=== PATIENT | female | born 1950 | race Caucasian/White ===

== ENCOUNTER 2018-03-06 00:18 | Inpatient (IN) | payer MEDICARE ==
[2018-03-06 01:13] LABS: #Basophils 0.1 thou/uL (0.0-0.2); #Eosinphils 0.1 thou/uL (0.0-0.7); #Monocytes 0.8 thou/uL (0.11-0.59); #Neutrophils 12.5 thou/uL (1.40-6.50); %Basophils 0.4 % (0.0-1.0); %Eosinophils 0.6 % (0.0-10.0); %Lymphocytes 12.9 % (21.0-51.0); %Monocytes 5.2 % (0.0-10.0); %Neutrophils 80.9 % (42.0-75.0); Hemoglobin 13.1 g/dL (12.0-16.0); Mean Corpuscular HGB CONC 34.3 g/dL (32.0-36.0); Mean Corpuscular Hemoglobin 30.2 pg (27.0-31.0); Mean Corpuscular Volume 87.9 fl (81.0-99.0); Platelet Count 282 thou/uL (130-400); RBC Distribution Width 12.4 % (11.5-14.5); Red Blood Cell (RBC) Count 4.33 mill/uL (4.20-5.40); White Blood Cell (WBC) Count 15.4 thou/uL (4.8-10.8)
[2018-03-06 01:27] LABS: ALT (SGPT) 16 U/L (8-55); AST (SGOT) 13 U/L (5-34); Albumin 4.3 g/dL (3.4-4.8); Alkaline Phosphatase 43 U/L (40-150); Anion Gap 15 mmol/L (10-20); BUN (Urea Nitrogen) 13 mg/dL (9.8-20.1); Bilirubin, Total 0.6 mg/dL (0.2-1.2); Calc. Creatinine Clearance 0 mL/min (70-130); Calcium 9.4 mg/dL (7.8-10.44); Carbon Dioxide 25 mmol/L (23-31); Chloride 105 mmol/L (98-107); Estimated GFR-MDRD 68; Globulin 2.4 g/dL (2.4-3.5); Glucose 184 mg/dL (80-115); Lipase 19 U/L (8-78); Potassium 3.7 mmol/L (3.5-5.1); Protein, Total 6.7 g/dL (6.0-8.3); Sodium 141 mmol/L (136-145)
[2018-03-06 02:35] LABS: Bilirubin Negative (Negative); Blood, Urine Negative (Negative); Clarity CLEAR (Clear); Glucose, Urine (Dipstick) Negative (Negative); Leukocyte Small (Negative); Nitrite Negative (Negative); Protein, Urine (Dipstick) Negative (Neg-Trace); Specific Gravity, Urine 1.018 (1.002-1.036); Urobilinogen 0.2 mg/dL (0.2-1.0)
[2018-03-06 02:38] LABS: Bacteria/HPF None Seen HPF (None Seen); Hyaline Casts/LPF 0-3 HYALINE CAST LPF (0-3 Hyaline); Pathc Cast-AUWi Flag 0.29 (0-2.49)
[2018-03-06 02:48] LABS: Renal Epithelial None Seen HPF (0-3); Transitional Epithelial NONE SEEN HPF (0-3)
[2018-03-06] MEDS ORDERED: Ondansetron HCl/PF 4 MG/2 ML Vial IVP PRN ×3 (04:00→19:49)
[2018-03-06] MEDS ORDERED: Ondansetron ODT 4 MG TAB SL PRN (04:00)
[2018-03-06] MEDS ORDERED: metroNIDAZOLE 500 MG/100 ML BAG ONE (04:20)
[2018-03-06] MEDS ORDERED: Morphine 4 MG/ML VIAL ONE ×2 (04:20→07:42)
[2018-03-06] MEDS ORDERED: Piperacillin/Tazobactam 4.5 GM VIAL ONE (05:01)
[2018-03-06] MEDS ORDERED: Morphine 4 MG/ML VIAL SLOW IVP PRN ×3 (08:40→19:49)
--- NOTE | 2018-03-06 09:28 | CT ---
PRELIMINARY REPORT/[facility]/EMERGENTY AFTER-HOURS PROCEDURE Addendum created by Randal Moran MD on 03/06/2018 4:30 AM Central Time ([place] & [place]) per operations te am, Dr Rocha is aware of report and has no questions. Initial Report created on 03/06/2018 4:23 AM C entral Time ([place] & [place]) CT Abdomen and Pelvis Without Intravenous Contrast EXAM DATE/TIME: Exam ordered 03/06/2018 2:56 AM CLINICAL HISTORY: 68 years old, female; Pain; Abdominal pain; Flank; Lower; Patient HX: Abdominal pain for 4 hours. Low er abdomen and gu pain. TECHNIQUE: Axial computed tomography images of the abdomen and pelvis without intravenous contrast. Coronal refo rmatted images were created and reviewed. COMPARISON: No relevant prior studies available. FINDINGS: Lung bases: There is subpleural atelectasis of the dependent portions of the lungs. Mediastinum: A small hiatal hernia is present. ABDOMEN: Liver: The liver is within normal limits for this noncontrast study. Gallbladder and bile ducts: There has been a cholecystectomy. No ductal dilation. Pancreas: The pancreas appears normal. No ductal dilation. Spleen: The spleen is normal. Adrenals: The adrenal glands are normal. Kidneys and ureters: Normal. No obstructing stones. No hydronephrosis. Stomach and bowel: There is inflammatory stranding surrounding the sigmoid colon involving several di verticula consistent with acute sigmoid diverticulitis. Numerous foci of free are seen within the abd omen consistent with perforation. No obstruction. PELVIS: Appendix: There are surgical clips in the RIGHT lower quadrant probably representing prior appendecto my. Bladder: Normal. No stones. Reproductive: The uterus is normal. ABDOMEN and PELVIS: Intraperitoneal space: Free air as above. No abscess. Bones/joints: No acute fracture. No dislocation. Soft tissues: Normal. Vasculature: Normal. No abdominal aortic aneurysm. Lymph nodes: Normal. No enlarged lymph nodes. Tubes, lines and devices: There is a gastric lap band in satisfactory position. IMPRESSION: Perforated acute sigmoid diverticulitis. No abscess. Thank you for allowing us to participate in the care of your patient. Dictated and Authenticated by: Randal Moran MD 03/06/2018 4:23 AM Central Time ([place] & [place]) FINAL REPORT EMERGENCY AFTER HOURS NONCONTRAST CT ABDOMEN AND PELVIS: Date: 03/06/18 HISTORY: Abdominal pain for 4 hours. Patient complains of lower abdominal pain and genitourinary pain. IMPRESSION: 1. Inflammatory changes within the right pelvis with thickening of a portion of the sigmoid colon wi th innumerable colonic diverticula seen. Findings are likely related to diverticulitis. Multiple foci of free intraperitoneal gas are seen throughout the abdomen as well. As noted on the preliminary rep ort, findings are likely related to perforated sigmoid diverticulitis. 2. No fluid collection is seen to suggest an abscess. 3. Postsurgical changes related to right hemicolectomy. 4. Gastric band in place. A portion of the stomach is above the level of the gastric band and there does appear to be mild thickening of the esophagus just proximal to the GE junction. 5. Post cholecystectomy changes. 6. Vascular calcifications. Findings are in agreement with the preliminary report by Johanna. POS: [facility]
[2018-03-06] MEDS ORDERED: Glycopyrrolate 0.2 MG/ML 5 ML SYRINGE ONE (11:17)
[2018-03-06] MEDS ORDERED: Dexamethasone 20 MG/5 ML VIAL ONE (11:17)
[2018-03-06] MEDS ORDERED: Metoclopramide HCl 10 MG/2 ML VIAL ONE (11:17)
[2018-03-06] MEDS ORDERED: Esmolol 100 MG/10 ML VIAL ONE (11:17)
[2018-03-06] MEDS ORDERED: Lidocaine 1% PF 5 ML VIAL ONE (11:17)
[2018-03-06] MEDS ORDERED: Succinylcholine Chloride 20 MG/ML 10 ml SYRINGE FS ONE (11:17)
[2018-03-06] MEDS ORDERED: PROPOFOL 200 MG/20 ML VIAL ONE (11:17)
[2018-03-06] MEDS ORDERED: PHENYLEPHRINE-NS 100 MCG/ML 10 ML SYRINGE ONE (11:17)
[2018-03-06] MEDS ORDERED: Piperacillin/Tazobactam 3.375 GM in Sodium Chloride 0.9% 100 ML IVPB SCH ×2 (12:30→19:49)
--- NOTE | 2018-03-06 15:02 | HP ---
DATE OF ADMISSION: 03/06/2018 CHIEF COMPLAINT: Diffuse abdominal pain. HISTORY OF PRESENT ILLNESS: The patient is a 68-year-old white female. She was seen, evaluated, and treated for an episode of diverticulitis 6 weeks ago while in [place]. She was started on a c ourse of Flagyl and Cipro and her symptoms seem to resolve. She tells me her last colonoscopy was about 5 years ago and was unremarkable except for diverticular disease. About 9:00 last night, she developed onset of abdominal pain. It progressed and became worse. She h ad nausea, but no vomiting. She presented to the emergency room and a CT scan was obtained. This re vealed findings consistent with perforated diverticulitis. There was free air seen within the abdome n. This, however, was a minimal amount of free air. She was started on intravenous antibiotics and admitted to my service. PAST MEDICAL HISTORY: Depression, hypothyroidism, gastroesophageal reflux disease, hypercholesterole nhan, diverticular disease. PAST SURGICAL HISTORY: 1. Sterotactic breast biopsy for benign disease. 2. Tonsillectomy. 3. Cholecystectomy. 4. Laparoscopic band placement approximately 1999. 5. Resection of approximately 18 inches of colon in about 2007 for a benign polyp. 6. Blepharoplasty. 7. Nasal surgery. CURRENT MEDICATIONS: Include Zoloft, Levoxyl, Reglan p.r.n., atorvastatin, sucralfate, aspirin. ALLERGIES: To TETRACYCLINE, so she is not taking TETRACYCLINE. PRIMARY CARE PHYSICIAN: Dr. Mansoor Valderrama. PERSONAL AND SOCIAL HISTORY: She is and is present at bedside. She has 3 children, one of whom is present at bedside. She denies tobacco. She uses alcohol rarely. She is retired. REVIEW OF SYSTEMS: Ten system review is otherwise negative. She tells me she rarely has any issues with constipation. FAMILY HISTORY: Noncontributory. PHYSICAL EXAMINATION: VITAL SIGNS: Her temperature is 98.5, pulse 81, blood pressure 112/72. GENERAL: She is a well-developed, well-nourished, pleasant white female resting in bed in no acute d istress. She is relatively comfortable while lying down. She has significant discomfort when she tr ies to move at all. She is alert and oriented x3. HEENT: Unremarkable. NECK: Supple, without mass or tenderness. LUNGS: Clear to auscultation. CARDIAC: Regular rate and rhythm without murmur. ABDOMEN: Diffusely tender in all 4 quadrants. Bowel sounds are present, but hypoactive. EXTREMITIES: Unremarkable. ASSESSMENT AND PLAN: Patient with perforated diverticulitis. She has more diffuse pain that I expec vincent following in light of what was on her CT scan. I therefore recommended laparoscopic washout to a void issues with peritonitis and infection. I suspect that this should be able to be managed with nv nimal laparoscopic surgery and drain placement. I would thereafter hope to allow this to resolve and then eventually proceed with an elective sigmoid colectomy to prevent recurrence of this again in li ght of her current perforation. I have discussed all this in detail with the patient and her family. They understand and agree to proceed. Surgery will be performed today.
[2018-03-06] MEDS ORDERED: Fentanyl 250 MCG/5 ML VIAL ONE (16:09)
[2018-03-06] MEDS ORDERED: Bupivacaine/Epinephrine 0.25% 30 ML VIAL ONE (16:11)
[2018-03-06] MEDS ORDERED: Promethazine HCl 25 MG/ML VIAL IM PRN ×2 (18:07→19:49)
[2018-03-06] MEDS ORDERED: Promethazine HCl 25 MG/ML VIAL SLOW IVP PRN (18:07)
[2018-03-06] MEDS ORDERED: Fentanyl 100 MCG/2 ML VIAL ONE (18:31)
[2018-03-06] MEDS: Piperacillin/Tazobactam 3.375 GM in Sodium Chloride 0.9% 100 ML IVPB SCH ×2 (18:42→23:20)
[2018-03-06] MEDS ORDERED: hydrALAZINE 20 MG/ML VIAL SLOW IVP PRN (19:49)
[2018-03-06] MEDS: Ketorolac Tromethamine 30 MG/ML VIAL IVP SCH (21:41)
[2018-03-06] MEDS: Acetaminophen 1,000 MG in Premix Bag 1 BAG IVPB SCH (21:41)
[2018-03-06] MEDS: Famotidine/PF 20 mg/2ml Vial SLOW IVP SCH (21:42)
[2018-03-06] MEDS: D5 1/2 NS w/20 mEq KCL 1,000 ML IV SCH (23:21)
[2018-03-06] MEDS: Famotidine 20 MG TAB PO SCH (23:21)
[2018-03-07] MEDS: Ketorolac Tromethamine 30 MG/ML VIAL IVP SCH ×4 (02:20→20:57)
[2018-03-07] MEDS: Acetaminophen 1,000 MG in Premix Bag 1 BAG IVPB SCH ×3 (02:20→14:12)
[2018-03-07 05:31] LABS: #Lymphocytes 1.1 thou/uL (1.20-3.40); #Monocytes 0.6 thou/uL (0.11-0.59); #Neutrophils 11.4 thou/uL (1.40-6.50); %Basophils 0.1 % (0.0-1.0); %Eosinophils 0.2 % (0.0-10.0); %Lymphocytes 8.1 % (21.0-51.0); %Monocytes 4.2 % (0.0-10.0); %Neutrophils 87.3 % (42.0-75.0); Hemoglobin 10.8 g/dL (12.0-16.0); Mean Corpuscular HGB CONC 32.9 g/dL (32.0-36.0); Mean Corpuscular Hemoglobin 30.3 pg (27.0-31.0); Mean Corpuscular Volume 92.2 fl (81.0-99.0); Mean Platelet Volume 6.5 fL (7.4-10.4); Platelet Count 212 thou/uL (130-400); RBC Distribution Width 12.4 % (11.5-14.5); Red Blood Cell (RBC) Count 3.57 mill/uL (4.20-5.40)
[2018-03-07] MEDS: Piperacillin/Tazobactam 3.375 GM in Sodium Chloride 0.9% 100 ML IVPB SCH ×3 (05:32→17:44)
[2018-03-07 05:53] LABS: Anion Gap 11 mmol/L (10-20); BUN (Urea Nitrogen) 9 mg/dL (9.8-20.1); Calc. Creatinine Clearance 94 mL/min (70-130); Calcium 8.2 mg/dL (7.8-10.44); Carbon Dioxide 20 mmol/L (23-31); Chloride 109 mmol/L (98-107); Estimated GFR-MDRD 87; Glucose 157 mg/dL (80-115); Sodium 136 mmol/L (136-145)
[2018-03-07] MEDS: D5 1/2 NS w/20 mEq KCL 1,000 ML IV SCH ×2 (07:52→11:42)
[2018-03-07] MEDS: Famotidine/PF 20 mg/2ml Vial SLOW IVP SCH ×2 (08:29→21:41)
[2018-03-07] MEDS: Famotidine 20 MG TAB PO SCH ×2 (08:29→20:57)
[2018-03-07] MEDS: Enoxaparin Sodium 40 MG/0.4 ML SYRINGE SC SCH (08:29)
--- NOTE | 2018-03-07 10:44 | OP ---
DATE OF PROCEDURE: 03/06/2018 PREOPERATIVE DIAGNOSIS: Perforated diverticulitis. POSTOPERATIVE DIAGNOSIS: Perforated diverticulitis. OPERATIONS PERFORMED: Laparoscopic abscess drainage, extensive laparoscopic washout and placement of intra-abdominal drains. SURGEON: Mansoor Valderrama M.D. ANESTHESIA: General endotracheal. INDICATIONS: The patient is a 68-year-old white female. She presented to the hospital with abdomina l pain and CT scan revealed perforated diverticulitis with free air away from the left lower quadrant . She has diffuse abdominal pain. I therefore recommended a laparoscopic washout. DESCRIPTION OF OPERATION: Informed consent was obtained. The patient was taken to the operating kai m where general endotracheal anesthesia was obtained with the patient in supine position. Abdomen wa s prepped with ChloraPrep and draped in sterile fashion. Local anesthetic was infiltrated and 5 mm r ight lateral abdominal incision was created through which a Veress needle was passed into the periton eal cavity and pneumoperitoneum established using carbon dioxide up to a pressure of 15 mmHg. A 5 mm trocar was passed through this same incision. Laparoscopic camera was passed this port. Under dire ct vision, an additional 5 mm right lower quadrant port was placed. I then placed a 5 mm supraumbili arya port and a 5 mm left mid abdominal port. There were noted to be adhesions in the right upper tammy drant from the prior colon resection. These were all omental. This was taken down using sharp disse ction with electrocautery. Attention was turned to the sigmoid colon. This was severely inflamed an d adherent to the anterior abdominal wall. It was easily bluntly mobilized away from the anterior ab dominal wall. The purulence and induration was in the center of the sigmoid colon. There was purule nce within the pelvis, right lower quadrant, left lower quadrant. There was no feculent material. I examined the sigmoid colon, could not identify a punctate opening with any inflammatory area. I asp irated all purulent material and submitted some of this for culture. I then extensively irrigated al l areas of the abdomen including both upper quadrants. A 6 liters of irrigant doing this and aspirat ed all irrigant. I then placed two separate #19 round fluted drains. One of these exited the right lower quadrant and this was positioned superior to the inflamed segment of sigmoid colon, though one on the left abdomen was placed inferior to the colon and down to the pelvis. The drains were secured to skin exit site with 3-0 nylon suture. The other laparoscopic port sites were closed with 4-0 Mon ocryl subcuticular suture and Dermabond. All ports and instruments were removed under direct vision. Pneumoperitoneum was carefully evacuated. The patient tolerated the procedure well and was taken t o recovery room in stable condition.
[2018-03-07] MEDS ORDERED: HYDROcodone/Acetaminophen 7.5/325 mg Tablet PO PRN ×2 (17:59)
[2018-03-07] MEDS: Atorvastatin Calcium 10 MG TAB PO SCH (20:57)
[2018-03-07] MEDS ORDERED: Acetaminophen 325 MG TAB PO PRN (21:28)
[2018-03-08] MEDS ORDERED: Acetaminophen 500 MG TAB PO PRN (00:08)
[2018-03-08] MEDS: Piperacillin/Tazobactam 3.375 GM in Sodium Chloride 0.9% 100 ML IVPB SCH ×5 (01:06→23:58)
[2018-03-08] MEDS: D5 1/2 NS w/20 mEq KCL 1,000 ML IV SCH ×3 (01:22→14:40)
[2018-03-08] MEDS: Ketorolac Tromethamine 30 MG/ML VIAL IVP SCH ×4 (02:13→20:49)
[2018-03-08] MEDS: Levothyroxine Sodium 125 MCG TAB PO SCH (06:19)
[2018-03-08 08:56] LABS: #Eosinphils 0.3 thou/uL (0.0-0.7); #Lymphocytes 1.6 thou/uL (1.20-3.40); #Monocytes 0.5 thou/uL (0.11-0.59); #Neutrophils 7.1 thou/uL (1.40-6.50); %Basophils 0.4 % (0.0-1.0); %Eosinophils 3.2 % (0.0-10.0); %Lymphocytes 16.2 % (21.0-51.0); %Monocytes 5.5 % (0.0-10.0); %Neutrophils 74.6 % (42.0-75.0); Hemoglobin 10.8 g/dL (12.0-16.0); Mean Corpuscular HGB CONC 33.1 g/dL (32.0-36.0); Mean Corpuscular Hemoglobin 29.7 pg (27.0-31.0); Mean Corpuscular Volume 89.7 fl (81.0-99.0); Mean Platelet Volume 6.3 fL (7.4-10.4); Platelet Count 237 thou/uL (130-400); RBC Distribution Width 12.4 % (11.5-14.5); Red Blood Cell (RBC) Count 3.65 mill/uL (4.20-5.40); White Blood Cell (WBC) Count 9.5 thou/uL (4.8-10.8)
[2018-03-08] MEDS: Enoxaparin Sodium 40 MG/0.4 ML SYRINGE SC SCH (08:57)
[2018-03-08] MEDS: Famotidine 20 MG TAB PO SCH ×2 (08:57→20:50)
[2018-03-08] MEDS: Famotidine/PF 20 mg/2ml Vial SLOW IVP SCH (08:57)
[2018-03-08 09:19] LABS: Anion Gap 8 mmol/L (10-20); BUN (Urea Nitrogen) 6 mg/dL (9.8-20.1); Calc. Creatinine Clearance 89 mL/min (70-130); Calcium 8.2 mg/dL (7.8-10.44); Carbon Dioxide 24 mmol/L (23-31); Chloride 111 mmol/L (98-107); Estimated GFR-MDRD 81; Glucose 115 mg/dL (80-115); Potassium 3.8 mmol/L (3.5-5.1); Sodium 139 mmol/L (136-145)
--- NOTE | 2018-03-08 14:26 | PRG ---
DATE OF SERVICE: 03/08/2018 SUBJECTIVE: The patient is postoperative day #2 from exploratory laparoscopy with drainage of pelvic abscess and abdominal washout. She had significant discomfort yesterday, but feels much better toda y. She is on a clear liquid diet which she has tolerated uneventfully. She has had a couple of tanner l movements. She notes she is passing flatus. PHYSICAL EXAMINATION: VITAL SIGNS: She is afebrile, pulse 73, blood pressure 159/83. LUNGS: Clear to auscultation. ABDOMEN: Soft with minimal tenderness and positive bowel sounds. Drains were inspected and found to have clear serosanguineous fluid. LABORATORY STUDIES: White blood cell count was down today to 9.5 with a hemoglobin stable at 10.8. Chemistry panel reveals minimal electrolyte abnormalities. ASSESSMENT: The patient is doing very well two days after laparoscopic drainage of perforated divert iculitis. She is making excellent progress. I will continue her Zosyn today. I will stop her IV fl uids and advance her to full liquid diet. Assuming she is doing well tomorrow, I plan on removing emma th drains and discharging her home with prescription for Cipro and Flagyl and to continue a liquid di et for a total of a week out from surgery.
[2018-03-08] MEDS: Atorvastatin Calcium 10 MG TAB PO SCH (20:50)
[2018-03-09] MEDS: Ketorolac Tromethamine 30 MG/ML VIAL IVP SCH ×2 (01:06→08:56)
[2018-03-09] MEDS: Piperacillin/Tazobactam 3.375 GM in Sodium Chloride 0.9% 100 ML IVPB SCH (06:58)
[2018-03-09] MEDS: Levothyroxine Sodium 125 MCG TAB PO SCH (06:58)
[2018-03-09 07:43] VITALS: BP 157/86; TEMP 98.3
[2018-03-09] MEDS: Famotidine 20 MG TAB PO SCH (08:56)
[2018-03-09] MEDS: Enoxaparin Sodium 40 MG/0.4 ML SYRINGE SC SCH (11:28)
== END 2018-03-09 11:05 | disposition home or self-care (01) | DRG 392 ==
LOC: ERS 00:18 → SURG B 06:31
PROVIDERS: ADMIT Specialist; ATTEND Specialist
PROC: 0W9J3ZZ Drainage of Pelvic Cavity, Percutaneous Approach (ICD-10-PCS; principal; 2018-03-06)
PROC: 0W9G3ZZ Drainage of Peritoneal Cavity, Percutaneous Approach (ICD-10-PCS; 2018-03-06)
DX: K57.20 Diverticulitis of large intestine with perforation and abscess without bleeding (principal); E03.9 Hypothyroidism, unspecified; K21.9 Gastro-esophageal reflux disease without esophagitis; E78.00 Pure hypercholesterolemia, unspecified
CPT/HCPCS: 36415; 74176; 80048; 80053; 81003; 81015; 83690; 85025; 87070; 87076; 87077; 87186; 87205; 96361; 96365; 96367; 96375; 96376; J0131; J1100; J1650; J1885; J2001; J2270; J2543; J2704; J2765; J3010; J7050

== ENCOUNTER 2018-06-23 14:35 | Emergency (ER) | payer MEDICARE | END 2018-06-23 15:48 | disposition home or self-care (01) | LOC: ERS 14:35 | DX: I80.02 Phlebitis and thrombophlebitis of superficial vessels of left lower extremity (principal); E78.5 Hyperlipidemia, unspecified; G62.9 Polyneuropathy, unspecified | CPT/HCPCS: 99284 ==

== ENCOUNTER 2018-10-06 12:03 | Outpatient (CLI) | payer MEDICARE ==
--- NOTE | 2018-10-06 12:55 | RAD ---
LUMBAR SPINE TWO VIEWS: History: Low back pain. FINDINGS/IMPRESSION: No compression fracture is seen. There are degenerative changes in the lower lumbar spine with grade I anterolisthesis of L4 over L5. POS: [facility]
== END 2018-10-06 12:04 | disposition home or self-care (01) ==
LOC: BICRAD 12:03
PROVIDERS: ATTEND Specialist
DX: M54.5 Low back pain (principal); M47.816 Spondylosis without myelopathy or radiculopathy, lumbar region; M43.16 Spondylolisthesis, lumbar region
CPT/HCPCS: 72100

== ENCOUNTER 2018-11-01 08:55 | Outpatient (CLI) | payer MEDICARE ==
--- NOTE | 2018-11-01 12:16 | MRI ---
MRI LUMBAR SPINE WITHOUT CONTRAST: Date: 11/01/18 COMPARISON: None. HISTORY: Low back pain that radiates down left leg for 6 months. TECHNIQUE: Multiplanar, multisequence MR images were obtained of the lumbar spine without contrast. FINDINGS: Generalized disc desiccation is seen. Vertebral bodies demonstrate normal height without evidence of fracture. There is Grade I anterolisthesis of L4 on L5. The conus medullaris terminates normally at T 12. The prevertebral and paraspinal soft tissues are unremarkable. T12-L1: Unremarkable. L1-2: Unremarkable. L2-3: A small generalized concentric disc bulge is seen. Mild bilateral posterior facet arthrosis. N o central canal stenosis. Mild bilateral neural foraminal stenosis. L3-4: A small generalized concentric disc bulge is seen. Mild bilateral posterior facet arthrosis. M ild central canal stenosis. Mild bilateral neural foraminal stenosis. L4-5: A large disc osteophyte complex is associated with superimposed central protrusion. Moderate b ilateral posterior facet arthrosis. Severe central canal stenosis. Moderate bilateral neural foramina l stenosis. L5-S1: A minimal generalized concentric disc bulge is seen. Mild bilateral posterior facet arthrosis . No central canal stenosis. Mild bilateral neural foraminal stenosis. IMPRESSION: Degenerative changes of the lumbar spine as above, greatest at L4-5. POS: [facility]
== END 2018-11-01 08:56 | disposition home or self-care (01) ==
LOC: BICMRI 08:55
PROVIDERS: ATTEND Specialist
DX: M54.5 Low back pain (principal); M47.816 Spondylosis without myelopathy or radiculopathy, lumbar region
CPT/HCPCS: 72148

== ENCOUNTER 2019-01-12 15:02 | Outpatient (CLI) | payer MEDICARE ==
--- NOTE | 2019-01-12 16:59 | RAD ---
3 VIEWS LUMBOSACRAL SPINE: Date: 01/12/19 COMPARISON: 10/06/18. HISTORY: Low back pain. FINDINGS: Three views of the lumbosacral spine were performed in neutral, flexion, and extension. There is Grad e I anterolisthesis of L4 on L5. This alignment is unchanged with flexion and extension. Posterior fa cet arthrosis is seen in the lower lumbosacral spine. IMPRESSION: Spondylolisthesis of L4 on L5 with unchanged alignment with bending. POS: [facility]
== END 2019-01-12 15:03 | disposition home or self-care (01) ==
LOC: TBSIIMAG 15:02
PROVIDERS: ATTEND Neurological Surgery
DX: M48.062 Spinal stenosis, lumbar region with neurogenic claudication (principal); M51.26 Other intervertebral disc displacement, lumbar region; M43.16 Spondylolisthesis, lumbar region
CPT/HCPCS: 72100

== ENCOUNTER 2019-02-08 05:49 | Inpatient (IN) | payer MEDICARE ==
[2019-02-07 16:00] VITALS: BMI 28.6
[2019-02-08 06:24] LABS: #Basophils 0.1 thou/uL (0.0-0.2); #Eosinphils 0.2 thou/uL (0.0-0.7); #Lymphocytes 3.4 thou/uL (1.20-3.40); #Monocytes 0.6 thou/uL (0.11-0.59); #Neutrophils 3.9 thou/uL (1.40-6.50); %Eosinophils 2.9 % (0.0-10.0); %Lymphocytes 41.4 % (21.0-51.0); %Monocytes 7.7 % (0.0-10.0); Hemoglobin 12.3 g/dL (12.0-16.0); Mean Corpuscular HGB CONC 33.4 g/dL (32.0-36.0); Mean Corpuscular Hemoglobin 29.8 pg (27.0-31.0); Mean Platelet Volume 6.3 fL (7.4-10.4); Platelet Count 254 thou/uL (130-400); Red Blood Cell (RBC) Count 4.15 mill/uL (4.20-5.40); White Blood Cell (WBC) Count 8.3 thou/uL (4.8-10.8)
[2019-02-08] MEDS ORDERED: Sodium Chloride 0.9% 10 ML ONE ×2 (06:30→06:37)
[2019-02-08] MEDS ORDERED: Bupivacaine HCl 0.5%/Epinephrine 1:200,000/PF 30 ml Vial ONE (06:30)
[2019-02-08] MEDS ORDERED: Thrombin 5000 UNITS/5 ML VIAL ONE (06:30)
[2019-02-08 06:32] LABS: Prothrombin Time 12.7 SEC (12.0-14.7)
[2019-02-08] MEDS ORDERED: Fentanyl 100 MCG/2 ML VIAL ONE ×3 (07:02→11:40)
--- NOTE | 2019-02-08 07:45 | HP ---
HISTORY OF PRESENT ILLNESS: This is a very pleasant 69-year-old female who reports to our office for evaluation of low back pain. The patient has symptoms of neurogenic claudication due to severe lumbar stenosis. The patient states that she has had back pain for years. However, in the last year it seems to have gotten progressively worse. She has left greater than right low back pain as well as burning numbness and tingling down both legs and feet. She states that if she is standing or walks for more than a few steps, she has severe back pain. The patient states that she finds herself leaning on a shopping cart more and more the longer she is out grocery shopping. She has been taking gabapentin, Celebrex, and Tylenol, but she denies physical therapy or injections at this time. REVIEW OF SYSTEMS: A 10-point review of system has been completed and is negative other than stated in the above HPI. PAST MEDICAL HISTORY: Diverticulitis, acid reflux, issues with esophagitis, back nerve pain and legs, depression, thyroid hyperlipidemia. PAST SURGICAL HISTORY: Removal of large polyp, lap band, lap choly, and tonsils and adenoids. Plastic eye surgery on the lids, diverticulitis in 2018. FAMILY HISTORY: Father is , diagnosed with hypertension, stroke. Mother diagnosed with heart disease and stroke. Siblings are alive. Children are alive. SOCIAL HISTORY: The patient is a nonsmoker. Does not use other tobacco products. No alcohol or other illicit drug use. The patient is sexually active, retired, , has three children and drinks caffeine on a daily basis. MEDICATIONS: Levothyroxine, cholestyramine, Lipitor, calcium, Horizant, Zoloft, atorvastatin, aspirin 81 mg, Questran, gabapentin. ALLERGIES: TRI-CYCLEN. PHYSICAL EXAMINATION: CONSTITUTIONAL: Well-appearing, well-nourished. NEUROLOGIC: Alert, awake, oriented x3. Speech spontaneous and fluent. Normal fund of knowledge. Cranial nerves grossly intact. Lower extremities 5/5 bilateral strength, hip flexion, knee flexion, knee extension, dorsiflexion, plantar flexion, EHL, no radiculopathy. Negative single leg raise bilaterally. Hip rotation normal bilaterally. Tender to palpate lumbar spine and left greater trochanteric bursa. Deep tendon reflexes diminished patellar bilaterally, diminished Achilles bilateral. Negative Babinski. No clonus. Sensory light touch intact. Gait and station; sit to stand, normal. Normal gait. IMAGING: MRI lumbar spine, severe stenosis at L4-L5 due to herniated nucleus polyposis, L3-L4 and L5-S1 mild moderate stenosis, spondylolisthesis L4-L5. ASSESSMENT AND PLAN: For lumbar spinal stenosis with neurogenic claudication and spondylolisthesis with lumbar region, Dr. Mario has offered surgery, laminectomy and TLIF, left L4-L5. Informed consent has been obtained. Discussed indications, risks, benefits, alternatives, expected results from surgery. The risks discussed included, but were not limited to, bleeding, infection, CSF leak, nerve damage, weakness, incontinence, cauda equina injury, arachnoiditis, paralysis, ventilator dependence, wheelchair dependence, loss of vision, hardware misplacement, cardiopulmonary complications of anesthesia or . Long-term complications have been discussed with her included, but were not limited to degradation of surrounding disks and need for further surgery. The patient states she understands the risks and is willing to proceed. Job ID: [id number]
[2019-02-08] MEDS ORDERED: Albumin 25% 100 ML ONE (08:43)
[2019-02-08] MEDS ORDERED: PHENYLEPHRINE-NS 100 MCG/ML 10 ML SYRINGE ONE ×2 (08:53→09:41)
[2019-02-08] MEDS ORDERED: Albumin 5% 500 ML ONE (09:11)
[2019-02-08] MEDS ORDERED: Glycopyrrolate 0.2 MG/ML 5 ML SYRINGE ONE (09:41)
[2019-02-08] MEDS ORDERED: PROPOFOL 200 MG/20 ML VIAL ONE (09:41)
[2019-02-08] MEDS ORDERED: Ondansetron PF 4 MG/2 ML Vial ONE (09:41)
[2019-02-08] MEDS ORDERED: Metoclopramide HCl 10 MG/2 ML VIAL ONE (09:41)
[2019-02-08] MEDS ORDERED: Rocuronium Bromide 10 MG/ML (10ML VIAL) ONE (09:41)
[2019-02-08] MEDS ORDERED: Dexamethasone 20 MG/5 ML VIAL ONE (09:41)
[2019-02-08] MEDS ORDERED: Lidocaine 1% PF 5 ML VIAL ONE (09:41)
[2019-02-08] MEDS ORDERED: Acetaminophen/Codeine 30-300mg Tablet PO PRN (10:47)
[2019-02-08] MEDS ORDERED: Bisacodyl 10 MG SUPP PR PRN (10:47)
[2019-02-08] MEDS ORDERED: Milk Of Magnesia 30 ML UDCUP PO PRN (10:47)
[2019-02-08] MEDS ORDERED: Acetaminophen 650 MG Suppository PR PRN (10:47)
[2019-02-08] MEDS ORDERED: Mag-Al 1200 mg/1200 mg/30 ML UDCUP PO PRN (10:47)
[2019-02-08] MEDS ORDERED: Promethazine HCl 25 MG/ML VIAL IM PRN (10:47)
[2019-02-08] MEDS ORDERED: diphenhydrAMINE 25 MG CAP PO PRN (10:47)
[2019-02-08] MEDS ORDERED: tiZANidine HCl 4 MG TAB PO PRN (10:47)
[2019-02-08] MEDS ORDERED: Ondansetron PF 4 MG/2 ML Vial IVP PRN (10:47)
[2019-02-08] MEDS ORDERED: Acetaminophen 325 MG TAB PO PRN (10:47)
[2019-02-08] MEDS ORDERED: Promethazine 25 MG TAB PO PRN (10:47)
[2019-02-08] MEDS ORDERED: Ondansetron HCl/PF 4 MG/2 ML Vial IVP PRN (11:00)
[2019-02-08] MEDS ORDERED: Promethazine HCl 25 MG/ML VIAL IM/IV PRN (11:00)
[2019-02-08] MEDS ORDERED: Non-Formulary Medication 1 EACH PO PRN (11:31)
--- NOTE | 2019-02-08 13:06 | OP ---
DATE OF PROCEDURE: 02/08/2019 BINDING END STITCHER: Tiara Dimas PA-C PREOPERATIVE INDICATION: Treat pain and prevent neurological deterioration. PREOPERATIVE DIAGNOSES: Spondylolisthesis, L4-L5 with resulting severe canal stenosis and neurogenic claudication. POSTOPERATIVE DIAGNOSES: Spondylolisthesis, L4-L5 with resulting severe canal stenosis and neurogenic claudication. PROCEDURES PERFORMED: Decompressive laminectomy, medial facetectomy and foraminotomy, L4-L5; transforaminal lumbar interbody arthrodesis, L4-L5; placement of intervertebral biomechanical device, L4-L5; pedicle screw and lyla instrumentation, L4-L5; posterolateral arthrodesis L4-L5; local morselized autograft and morselized allograft. PREOPERATIVE MEDICATIONS: Ancef 2 g IV. DRAIN NUMBER: Zero. DRAIN TYPE: None. DESCRIPTION OF PROCEDURE: The patient was brought to the operating room. General endotracheal anesthesia was induced. The patient was positioned prone on the Carlos frame with the appropriate padding for the chest and hips. A lateral fluoro radiograph was used to plan our incision. The lumbar skin was sterilely prepped and draped. We opened our incision with a 10 blade knife and controlled bleeding with bipolar and monopolar cautery. We used monopolar cautery to dissect through subcutaneous tissues to the thoracodorsal fascia. We incised the fascia in the midline and reflected the paraspinal muscles off the spinous process and laminae of L3, L4, and L5. A self-retaining retractor was placed. A lateral fluoro radiograph was used to confirm the levels upon which we were operating. We then carried our dissection over the facet joints at L3-L4 and L4-L5 to identify the transverse process of L4 and L5 bilaterally. An Adson rongeur was used to remove the spinous process of L4 and the superior portion of L5. A Kerrison rongeur was used to fashion a laminectomy at L4 and L5. We widened our laminectomy defect until we were in-line with the medial border of the pedicles of L4 and L5 bilaterally. This decompressed the thecal sac nicely. We then turned our attention to arthrodesis. With an Adson rongeur, we removed the facet joint at L4-L5 on the left side. We used this opening through the foramen to access the intervertebral space. We incised the disk with an 11 blade knife and removed the disk contents using curettes and rongeurs. We prepared the endplates for grafting. We measured the height of the interspace with rectangular-shaped bone rasp to 11 mm. An 11-mm PEEK intervertebral graft was brought into the field. Laminectomy bone was carefully morselized on the back table and added into the demineralized bone matrix to form a fusion substrate. The substrate was packed in the intervertebral graft and the graft was advanced into the interspace under radiographic guidance to the appropriate depth. We turned our attention to pedicle screw instrumentation. Using bony anatomic landmarks, palpation of the medial portion of the pedicles, and a lateral fluoro radiograph as our guide, we chose entry points for L4-L5 pedicle screws. We drilled out our entry points and used a bone awl to advance through the pedicles into the vertebral body. Using a tap, we created a widened trajectory. We tapped each trajectory and found them completely encased in bone. We then placed 6.5 mm pedicle screws into the pedicles at L4 and L5 bilaterally. A 360-degree image set was generated with our eccentric C-arm confirming adequate positioning of our pedicle screws. We irrigated copiously with bacitracin irrigation. We then decorticated the transverse processes of L4 and L5 bilaterally. Over the decorticated bone, we left demineralized bone matrix and morselized autograft as our posterolateral fusion substrate. We placed rods into the screw heads and we tightened caps over the rods. Using a torque/counter-torque mechanism, we ensured adequate tightness. We also ensured there was compression across the interspace to keep the interbody graft in place. We once again checked the exiting and traversing nerve roots to ensure they were still adequately decompressed. We treated the wound with vancomycin powder. We closed the wound in anatomical layers. We applied a sterile dressing. This was a clean case, no contamination. Job ID: [id number]
[2019-02-08] MEDS: Sodium Chloride 0.9% 1,000 ML IV SCH ×2 (14:50→21:46)
[2019-02-08] MEDS: Morphine 2 MG/ML SYRINGE SLOW IVP PRN ×2 (14:50→17:45)
[2019-02-08] MEDS ORDERED: CEFAZOLIN 2 GM in Premix Bag 1 BAG IVPB SCH (15:00)
[2019-02-08] MEDS: diphenhydrAMINE 50 MG/ML VIAL IVP PRN (15:11)
[2019-02-08] MEDS ORDERED: Prevnar 13-Val Conj/PF 0.5 ML SYRINGE IM ONE (15:30)
[2019-02-08] MEDS ORDERED: Chloraseptic Spray 180 ml Bottle PO PRN (16:56)
[2019-02-08] MEDS ORDERED: [UNRECOGNIZED DRUG - REMARK] FS SCH (17:00)
[2019-02-08] MEDS ORDERED: Chloraseptic Spray 180 ml Bottle PO SCH (17:00)
[2019-02-08] MEDS: Clindamycin/D5W 900 MG in Premix Bag 1 BAG IVPB SCH (17:44)
[2019-02-08] MEDS: CeleCOXIB 100 MG CAP PO SCH (20:11)
[2019-02-08] MEDS: Gabapentin 300 MG CAP PO SCH (20:12)
[2019-02-08] MEDS: Atorvastatin Calcium 10 MG TAB PO SCH (20:12)
[2019-02-08] MEDS ORDERED: Non-Formulary Item 1 EACH (Esomeprazole Magnesium [Nexium] 20 MG) PO SCH (21:00)
[2019-02-09] MEDS: Morphine 4 MG/ML VIAL SLOW IVP PRN ×3 (00:02→08:56)
[2019-02-09] MEDS: diphenhydrAMINE 50 MG/ML VIAL IVP PRN (00:02)
[2019-02-09] MEDS: Levothyroxine Sodium 125 MCG TAB PO SCH (05:32)
[2019-02-09] MEDS: Sodium Chloride 0.9% 1,000 ML IV SCH (05:32)
--- NOTE | 2019-02-09 07:22 | PRG ---
DATE OF SERVICE: 02/09/2019 I saw Ms. Rae on rounds this morning. She is one day out from decompression and fusion at L4-5 for spondylolisthesis, which was resulting in significant and severe spinal stenosis. Her legs feel much better after surgery than they did before. Yesterday, she had one episode of laryngospasm and some difficulty breathing, but some Chloraseptic and IV medications seemed to improve things. She has not had that recur. Does not have a medication allergy that would have been responsible. T-max I see recorded is 99.6, her blood pressures have been in the 100s to 110s. She has good function in her lower extremities. Ms. Rae is a bit sore this morning and will need physical therapy to start mobilization. When she is independent for activities of daily living, she can go home. Anticipate that would be this evening at the earliest, but more likely tomorrow. Job ID: [id number] MTDD
[2019-02-09] MEDS: Gabapentin 300 MG CAP PO SCH ×2 (08:52→21:17)
[2019-02-09] MEDS: CeleCOXIB 100 MG CAP PO SCH ×2 (08:53→21:18)
[2019-02-09] MEDS: Acetaminophen/Codeine 30-300mg Tablet PO PRN ×2 (12:27→18:37)
[2019-02-09] MEDS: Clindamycin/D5W 900 MG in Premix Bag 1 BAG IVPB SCH (18:31)
[2019-02-09] MEDS: Atorvastatin Calcium 10 MG TAB PO SCH (21:18)
[2019-02-10] MEDS: Sodium Chloride 0.9% 1,000 ML IV SCH ×2 (02:02→16:47)
[2019-02-10] MEDS: Levothyroxine Sodium 125 MCG TAB PO SCH (05:22)
[2019-02-10] MEDS ORDERED: HYDROcodone/Acetaminophen 7.5/325 mg Tablet PO PRN ×2 (07:54)
[2019-02-10] MEDS ORDERED: Sodium Chloride 0.9% 1,000 ML IV SCH (08:00)
[2019-02-10] MEDS: Gabapentin 300 MG CAP PO SCH ×2 (08:03→20:01)
[2019-02-10] MEDS: CeleCOXIB 100 MG CAP PO SCH ×2 (08:03→20:01)
[2019-02-10] MEDS ORDERED: Morphine 2 MG/ML SYRINGE SLOW IVP PRN (10:40)
--- NOTE | 2019-02-10 11:25 | PRG ---
DATE OF SERVICE: 02/10/2019 SUBJECTIVE: Ms. Rae is a 69-year-old woman, who was admitted 2days ago in the postoperative period by Dr. Mario, status post lumbar laminectomy to L4-L5. This morning, she is lying in bed and somewhat difficult to arouse initially, although appears somewhat somnolent. Her blood pressures also been lagging, most recently 90/53. This could be indicative of overmedication. Right now, she is essentially being treated with morphine and occasional Tylenol No. 3. I would like to back her morphine down. Right now, it is 2 to 4 mg q.1 hour p.r.n. We will discontinue the 2 mg q.2 hours p.r.n. and I will switch her from Tylenol No. 3 to [place] instead. I would also like to see her ambulating frequently in the hallways. I discussed with her that we would like to get her home as soon as possible, citing concerns for secondary insult in the postoperative period earlier if we have longer hospital admission. The patient expresses understanding and I will work to gain better pain control for her, so that we can discharge her as soon as possible. I would like to see her at home before the end of the weekend if possible. We will lean on our colleagues and physical therapy as well to continue to motivate the patient to participate in physical therapy and regain mobility, otherwise she is well appearing. Job ID: [id number]
[2019-02-10] MEDS: Atorvastatin Calcium 10 MG TAB PO SCH (20:01)
[2019-02-11] MEDS: Sodium Chloride 0.9% 1,000 ML IV SCH (04:59)
[2019-02-11] MEDS: Levothyroxine Sodium 125 MCG TAB PO SCH (05:44)
[2019-02-11] MEDS: CeleCOXIB 100 MG CAP PO SCH (08:05)
[2019-02-11] MEDS: Gabapentin 300 MG CAP PO SCH (08:05)
--- NOTE | 2019-02-11 10:50 | PRG ---
DATE OF SERVICE: 02/11/2019 Ms. Rae is resting comfortably in her bed. She feels like she has turned a corner with respect to her pain. She has been mobilizing in the room, but not very much in the hallways. She is eager to go to inpatient rehab setting as she does not believe she is ready to care for herself at home. I do believe this would be in her best interest. The rehab service is awaiting on a bed, and she could be transferred there as early as today pending approval. Job ID: [id number]
[2019-02-11 11:37] VITALS: BP 105/69; TEMP 98
--- NOTE | 2019-02-12 08:42 | PRG ---
DATE OF SERVICE: 02/11/2019 Ms. Rae is on the 3rd day of her hospital stay and status post lumbar TLIF with Dr. Mario. After changing her medications yesterday from Tylenol No. 3 to Ida and reducing her morphine availability, she has improved immensely in terms of level of the consciousness and her blood pressure has come back and normalized anywhere from the 120s to 130s systolic. She feels significantly better, has ambulated a little bit more, but still has a great deal of pain with transitions from lying to sitting, sitting to standing and vice versa in both of those scenarios. There was a rehab consultation that was ordered the day of her admission, and the liaison did come to see her yesterday and it appears that they might be able to take her at some point either later today or this evening. I will put discharge in and sign her transfer forms, and we will see where the day takes us. The patient is agreeable to rehab. I have discussed this with the nursing staff as well. Job ID: [id number]
[2019-02-12 15:26] LABS: Actual Bicarbonate (HCO3a) 23.5 mEq/L (22-28); Analyzer IN Cardio OR; Base Excess (BEa) -2.1 mEq/L (-2.0 to +3.0); CO2 Tension 44.1 mmHg (35.0-45.0); Calcium, Ionized 1.14 mmol/L (1.12-1.30); Carboxyhemoglobin (COHb) 0.2 gm% (0.0-3.0); Hemoglobin (Hb) 9.5 g/dL (12.0-16.0); O2 Tension (PaO2) 214.3 mmHg (> 70.0); Potassium - ABG Lab 4.07 mmol/L (3.70-5.30); pH, Arterial 7.35 (7.35-7.45)
[2019-02-12 15:45] LABS: Puncture Site ALINE
== END 2019-02-11 15:00 | DRG 455 ==
LOC: SURG A 05:49 → EDSTATUS 15:16
PROVIDERS: ADMIT Neurological Surgery; ATTEND Neurological Surgery
PROC: 0SG00AJ Fusion of Lumbar Vertebral Joint with Interbody Fusion Device, Posterior Approach, Anterior Column, Open Approach (ICD-10-PCS; principal; 2019-02-08)
PROC: 0SG00J1 Fusion of Lumbar Vertebral Joint with Synthetic Substitute, Posterior Approach, Posterior Column, Open Approach (ICD-10-PCS; 2019-02-08)
DX: M43.16 Spondylolisthesis, lumbar region (principal); M48.062 Spinal stenosis, lumbar region with neurogenic claudication; J38.5 Laryngeal spasm; K21.9 Gastro-esophageal reflux disease without esophagitis; E78.5 Hyperlipidemia, unspecified; F32.9 Major depressive disorder, single episode, unspecified; Z79.82 Long term (current) use of aspirin; Z88.1 Allergy status to other antibiotic agents
CPT/HCPCS: 36415; 76000; 82805; 85025; 85610; 85730; 90471; 90670; C1713; C1768; G0009; J0670; J0690; J1100; J1200; J2001; J2270; J2405; J2704; J2765; J3010; J3370; J3490; J7050; P9045; P9047

== ENCOUNTER 2019-04-03 15:41 | Outpatient (CLI) | payer MEDICARE ==
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
== END 2019-04-03 15:42 | disposition home or self-care (01) ==
LOC: TBSIIMAG 15:41
PROVIDERS: ATTEND Neurological Surgery
DX: M43.16 Spondylolisthesis, lumbar region (principal); M43.17 Spondylolisthesis, lumbosacral region; Z98.890 Other specified postprocedural states
CPT/HCPCS: 72100

== ENCOUNTER 2021-01-22 14:32 | Outpatient (CLI) | payer MEDICARE | END 2021-01-22 14:33 | disposition home or self-care (01) | LOC: BICMAMMO 14:32 | PROVIDERS: ATTEND Specialist | DX: Z12.31 Encounter for screening mammogram for malignant neoplasm of breast (principal); M81.0 Age-related osteoporosis without current pathological fracture; M85.851 Other specified disorders of bone density and structure, right thigh; M85.852 Other specified disorders of bone density and structure, left thigh; Z80.3 Family history of malignant neoplasm of breast | CPT/HCPCS: 77063; 77067; 77080 ==

== ENCOUNTER 2021-03-17 14:52 | Outpatient (CLI) | payer MEDICARE | END 2021-03-17 14:53 | disposition home or self-care (01) | LOC: BICULT 14:52 | PROVIDERS: ATTEND Nurse Practitioner Family | DX: I82.402 Acute embolism and thrombosis of unspecified deep veins of left lower extremity (principal); M79.605 Pain in left leg; I82.812 Embolism and thrombosis of superficial veins of left lower extremity ==

== ENCOUNTER 2021-03-26 10:00 | Outpatient (CLI) | payer MEDICARE ==
[2021-03-26 20:41] LABS: SARS-CoV-2 NAA Rapid Test Not Detected (NotDetected)
== END 2021-03-26 10:01 | disposition home or self-care (01) ==
LOC: LABBT 10:00
PROVIDERS: ATTEND Internal Medicine Gastroenterology
DX: Z01.812 Encounter for preprocedural laboratory examination (principal); Z20.822 Contact with and (suspected) exposure to COVID-19
CPT/HCPCS: U0002; U0005

== ENCOUNTER 2021-03-31 09:26 | Outpatient (CLI) | payer MEDICARE | END 2021-03-31 09:27 | disposition home or self-care (01) | LOC: RAD 09:26 | PROVIDERS: ATTEND Internal Medicine Gastroenterology | DX: K44.9 Diaphragmatic hernia without obstruction or gangrene (principal); R11.10 Vomiting, unspecified; K22.2 Esophageal obstruction; K95.09 Other complications of gastric band procedure | CPT/HCPCS: 74220 ==

== ENCOUNTER 2021-11-25 13:05 | Outpatient (CLI) | payer MEDICARE | END 2021-11-25 13:06 | disposition home or self-care (01) | LOC: BICRAD 13:05 | PROVIDERS: ATTEND Specialist | DX: M54.50 Low back pain, unspecified (principal) | CPT/HCPCS: 72100 ==

== ENCOUNTER 2022-12-09 12:38 | Outpatient (CLI) | payer MEDICARE | END 2022-12-09 12:39 | disposition home or self-care (01) | LOC: BICMAMMO 12:38 | PROVIDERS: ATTEND Specialist | DX: Z12.31 Encounter for screening mammogram for malignant neoplasm of breast (principal); M85.852 Other specified disorders of bone density and structure, left thigh; M85.851 Other specified disorders of bone density and structure, right thigh; Z80.3 Family history of malignant neoplasm of breast; Z91.89 Other specified personal risk factors, not elsewhere classified | CPT/HCPCS: 77063; 77067; 77080 ==

== ENCOUNTER 2023-08-15 09:00 | Outpatient (CLI) | payer MEDICARE | END 2023-08-15 09:01 | disposition home or self-care (01) | LOC: BICCT 09:00 | PROVIDERS: ATTEND Specialist | DX: M54.50 Low back pain, unspecified (principal); M96.1 Postlaminectomy syndrome, not elsewhere classified; M43.26 Fusion of spine, lumbar region | CPT/HCPCS: 72131 ==

== ENCOUNTER 2023-12-19 13:06 | Outpatient (CLI) | payer MEDICARE | END 2023-12-19 13:07 | disposition home or self-care (01) | LOC: BICMAMMO 13:06 | PROVIDERS: ATTEND Specialist | DX: Z12.31 Encounter for screening mammogram for malignant neoplasm of breast (principal); Z80.3 Family history of malignant neoplasm of breast; Z91.89 Other specified personal risk factors, not elsewhere classified | CPT/HCPCS: 77063; 77067 ==